=== PATIENT | female | born 1950 | race African-American/Black ===

== ENCOUNTER 2017-07-17 00:17 | Emergency (ER) | payer OTHER, MEDICAID ==
[~2017-07-17] VITALS: Ht 157.5 cm; Wt 59.0 kg
[2017-07-17] MEDS ORDERED: ONDANSETRON 4MG ODT PO STA (01:00)
[2017-07-17 01:43] LABS: BASOPHILS % 0.4 % (0.0-2.0); EOSINOPHILS % 0.1 % (0.0-5.0); HEMATOCRIT. 38.5 % (36.0-48.0); HEMOGLOBIN. 13.1 g/dL (12.0-16.0); LYMPHOCYTES % 13.2 % (20.0-50.0); MEAN CORPUSCULAR HEMOGLOBIN 31.3 pg (28.0-32.0); MEAN CORPUSCULAR VOLUME 92.1 fL (81.0-99.0); MEAN PLATELET VOLUME 9.4 fl (7.4-10.4); MONOCYTES % 2.3 % (2.0-8.0); PLATELET 240 x1000/uL (130-400); RED BLOOD CELL COUNT 4.18 mill/uL (4.2-5.4); RED CELL DISTRIBUTION WIDTH 13.5 % (11.6-14.6)
[2017-07-17 01:46] LABS: CHLORIDE 106 mEq/L (98-107)
[2017-07-17 01:49] LABS: PROTHROMBIN TIME 10.4 sec (9.4-11.6)
[2017-07-17 01:52] LABS: ETHANOL BLOOD < 10 mg/dL
[2017-07-17] MEDS ORDERED: SODIUM CHLORIDE 0.9% 1,000 ML IV ONE (05:00)
[2017-07-17 05:30] VITALS: BP 195/69
== END 2017-07-17 06:06 | disposition home or self-care (01) ==
LOC: ER 00:17 → CANBEDREQ 07:53
DX: R10.84 Generalized abdominal pain (principal); R11.2 Nausea with vomiting, unspecified; I10 Essential (primary) hypertension; F43.10 Post-traumatic stress disorder, unspecified; F41.9 Anxiety disorder, unspecified; F12.10 Cannabis abuse, uncomplicated
CPT/HCPCS: 36415; 71045; 80053; 83605; 83690; 85025; 85610; 96360; 99285; G0482; J7030; Q0162